=== PATIENT | male | born 1995 | race Hispanic/Latino ===

== ENCOUNTER 2016-11-29 18:09 | Emergency (ER) | payer MEDICAID ==
[2016-11-29 18:14] VITALS: BP 117/79; PULSE 73; RESP 20; TEMP 98.4; O2SAT 100
--- NOTE | 2016-11-29 18:38 | C.PDOC ---
History Of Present Illness The patient, a 21 y/o male, presents to the ED for evaluation of a painful area of swelling around his left ear which began around 2 days ago. Patient states he attempted to squeeze the area and is now concerned that the area is infected. Otherwise, he denies fever, chills, wound draining, earache, headache , dizziness, neck pain, denies any other active complaints. Ambulate to Ed for evaluation, not in any apparent distress. Time Seen by Provider: 11/29/16 18:16 Chief Complaint (Nursing): Abnormal Skin Integrity History Per: Patient History/Exam Limitations: no limitations Onset/Duration Of Symptoms: Days (2) Current Symptoms Are (Timing): Still Present Location Of Injury: Left: Head (ear) Quality Of Symptoms: Painful, Swollen. denies: Draining Additional History Per: Patient Past Medical History Reviewed: Historical Data, Nursing Documentation, Vital Signs Vital Signs: Last Vital Signs Temp 98.4 F 11/29/16 18:13 Pulse 73 11/29/16 18:13 Resp 20 11/29/16 18:13 BP 117/79 11/29/16 18:13 Pulse Ox 100 11/29/16 20:21 - Medical History PMH: Asthma Surgical History: No Surg Hx Family History: States: Unknown Family Hx - Social History Hx Tobacco Use: Yes Hx Alcohol Use: No Hx Substance Use: No - Immunization History Hx Tetanus Toxoid Vaccination: Yes Hx Influenza Vaccination: No Hx Pneumococcal Vaccination: No Review Of Systems Except As Marked, All Systems Reviewed And Found Negative. Constitutional: Negative for: Fever, Chills ENT: Positive for: Ear Pain (left ear ), Other (+swelling around left ear. no wound draining ) Physical Exam - Physical Exam Appears: Well, Non-toxic, No Acute Distress Skin: Warm, Dry, Other (facial acne condom. Small superficial abrasion just before tragus with mild erythema. no draining, no flactulance, no proximal streaking.) Head: Atraumatic, Normacephalic Eye(s): bilateral: Normal Inspection Ear(s): Bilateral: Normal Nose: Normal Oral Mucosa: Moist Tongue: Normal Appearing Lips: Normal Appearing Throat: Normal Lymphatic: No Adenopathy (cervical) Neurological/Psych: Oriented x3, Normal Speech ED Course And Treatment O2 Sat by Pulse Oximetry: 100 (on RA) Pulse Ox Interpretation: Normal Progress Note: Patient received Doryx PO. On re-eval, pt is afebrile, hemodynamicaly stable. NOn-toxic. Tolerate Po well in Ed. PulseOx 100% RA. Skin: exam c/w acne, superficial abrasion, no flactulance, no cellulitis. ENT: no acute findings. Pt advised. ref. to F/u with PMD. Derm In 2-3 days for re- eval. return if any new changes. Disposition Counseled Patient/Family Regarding: Diagnosis, Need For Followup, Rx Given - Disposition Referrals: David Lewis [Staff Provider] - Disposition: HOME/ ROUTINE Disposition Time: 18:34 Condition: GOOD Additional Instructions: Take medication as prescribed Apply antibacterial cream to scratch area daily Follow up with PMD and Dermatology in 1-2 days for re-evaluation. Return to Ed if any worsening or new changes. Prescriptions: Bacitracin OINT 1 applic TP DAILY #1 tube Doxycycline Hyclate 100 mg PO Q12 #14 tab Instructions: Acne (ED) - Clinical Impression Clinical Impression: Acne comedone - PA / PRACTICE MANAGEMENT CONSULTANT / Resident Statement MD/DO has reviewed & agrees with the documentation as recorded. - Scribe Statement The provider has reviewed the documentation as recorded by the Scribe (Yahaira Shields) All medical record entries made by the Scribe were at my direction and personally dictated by me. I have reviewed the chart and agree that the record accurately reflects my personal performance of the history, physical exam, medical decision making, and the department course for this patient. I have also personally directed, reviewed, and agree with the discharge instructions and disposition.
== END 2016-11-29 18:53 | disposition home or self-care (01) ==
LOC: C.ER 18:09
DX: S00.412A Abrasion of left ear, initial encounter (principal); X58.XXXA Exposure to other specified factors, initial encounter; L70.8 Other acne

== ENCOUNTER 2017-01-05 19:34 | Emergency (ER) | payer MEDICAID ==
[2017-01-05 20:07] VITALS: BP 113/70; PULSE 79; RESP 18; TEMP 97.9; O2SAT 99
--- NOTE | 2017-01-05 20:43 | C.PDOC ---
History Of Present Illness Patient is a 21 year old male who presents to the ER with a complaint of white spots on his gums that he woke up with. Patient reports having oral intercourse last night and it concerns that causes the spots. Patient also notes bumps on his face for the last 5 days. Patient admits to ETOH use today and admits to poor oral hygiene. Patient has not followed up with a dentist in "a long time". Patient denies fever, pain, dysuria, testicular pain or penile discharge. (-) pain with swallowing and difficulty breathing or swallowing History Per: Patient History/Exam Limitations: no limitations Onset/Duration Of Symptoms: Hrs (white on gingiva), Days (Bumps on face) Current Symptoms Are (Timing): Still Present Recent travel outside of the [place]: No Past Medical History Reviewed: Historical Data, Nursing Documentation, Vital Signs Vital Signs: Last Vital Signs Temp 97.9 F 01/05/17 20:04 Pulse 79 01/05/17 20:04 Resp 18 01/05/17 20:04 BP 113/70 01/05/17 20:04 Pulse Ox 99 01/05/17 21:53 - Medical History PMH: Asthma (STATES NO ATTTACK IN 5YRS) Surgical History: No Surg Hx Family History: States: Unknown Family Hx - Social History Hx Tobacco Use: Yes Hx Alcohol Use: No Hx Substance Use: No - Immunization History Hx Tetanus Toxoid Vaccination: Yes Hx Influenza Vaccination: No Hx Pneumococcal Vaccination: No Review Of Systems ENT: Positive for: Other (White spots on gingiva) Genitourinary: Negative for: Dysuria, Penile Discharge, Scrotal Pain Skin: Positive for: Other (Bumps on face) Physical Exam - Physical Exam Appears: Well, Non-toxic, No Acute Distress Skin: Warm, Dry, Other ((+) 2 pustules to left cheek, no surrounding erythema, blackheads and acne throughout face) Head: Atraumatic, Normacephalic Eye(s): bilateral: Normal Inspection, EOMI Nose: Normal Oral Mucosa: Moist Teeth: Caries, Other (poor dentition, plaque on teeth) Gingiva: No Erythema, No Ulceration, No Swelling, No Bleeding, Other ( (+) white debris on gingiva that is easily scraped off without erythma below , no swelling, or discharge. Not thrush appearance.) Throat: Normal, No Erythema, No Exudate Neck: Normal, Normal ROM, Supple Lymphatic: Normal Exam Chest: Symmetrical, No Tenderness Cardiovascular: Rhythm Regular Respiratory: Normal Breath Sounds, No Accessory Muscle Use, Other (Speaking in complete sentences) Neurological/Psych: Oriented x3, Normal Speech, Other (No focal deficits) ED Course And Treatment O2 Sat by Pulse Oximetry: 99 (Room air) Pulse Ox Interpretation: Normal Progress Note: Discussed with patient that gingiva shows poor dentition, no signs of infection. Pt admits to not brushing his teeth in 2 days. Offered STD evaluation /treatment; pt notes he is asymptomatic- no penile discharge, pain, dysuria. Pt was instructed for physical with further evaluation in 1-2 days. Also instructed to follow up with dentist or store team leader. Disposition - Disposition Referrals: Non [facility] Provider, [Primary Care Provider] - Disposition: HOME/ ROUTINE Disposition Time: 20:37 Condition: STABLE Additional Instructions: Use mouth wash twice a day after brushing. Follow up with dentist and store team leader. Prescriptions: Benzocaine 7.5% [Orajel] 7.5 gel MM TID #1 tube Clindamycin 1% [Cleocin] 1 appl TP DAILY #1 tube Instructions: Acne (ED) - Clinical Impression Clinical Impression: Acne, Dental plaque - Scribe Statement The provider has reviewed the documentation as recorded by the Scribhumberto Miranda All medical record entries made by the Scribe were at my direction and personally dictated by me. I have reviewed the chart and agree that the record accurately reflects my personal performance of the history, physical exam, medical decision making, and the department course for this patient. I have also personally directed, reviewed, and agree with the discharge instructions and disposition.
== END 2017-01-05 21:09 | disposition home or self-care (01) ==
LOC: SUPCPDRO 19:34 → C.ER 19:34
DX: K08.89 Other specified disorders of teeth and supporting structures (principal); L70.9 Acne, unspecified

== ENCOUNTER 2017-05-11 12:05 | Emergency (ER) | payer MEDICAID ==
[2017-05-11 12:24] VITALS: TEMP 98.5
--- NOTE | 2017-05-11 12:57 | C.PDOC ---
History Of Present Illness 21 yo male come in for evaluation of sore throat for past few days. Pt also request evaluation, " painful small mass in front of my left ear for past few months". Otherwise, pt denies fever, chills, headache, dizziness, drooling, dysphagia, earache or ear discharges, cough, neck pain, CP, SOB, cough, wheezing , abd. pain, N/V/D, back pain, UTI sx. Ambulate to Ed for evaluation, not in any apparent distress. Time Seen by Provider: 05/11/17 12:21 Chief Complaint (Nursing): ENT Problem History Per: Patient Onset/Duration Of Symptoms: Gradual Past Medical History Reviewed: Historical Data, Nursing Documentation, Vital Signs Vital Signs: Last Vital Signs Temp 98.5 F 05/11/17 12:18 Pulse 68 05/11/17 12:18 Resp 20 05/11/17 12:18 BP 106/68 05/11/17 12:18 Pulse Ox 98 05/11/17 12:18 - Medical History PMH: Asthma (STATES NO ATTTACK IN 5YRS) Surgical History: No Surg Hx Family History: States: No Known Family Hx - Social History Hx Tobacco Use: Yes Hx Alcohol Use: Yes Hx Substance Use: No - Immunization History Hx Tetanus Toxoid Vaccination: Yes Hx Influenza Vaccination: No Hx Pneumococcal Vaccination: No Review Of Systems Except As Marked, All Systems Reviewed And Found Negative. Constitutional: Negative for: Fever, Chills ENT: Positive for: Nose Congestion, Throat Pain. Negative for: Ear Discharge, Nose Discharge, Throat Swelling Cardiovascular: Negative for: Chest Pain Respiratory: Negative for: Cough, Shortness of Breath, Wheezing Gastrointestinal: Negative for: Nausea, Vomiting, Abdominal Pain, Diarrhea Musculoskeletal: Negative for: Neck Pain Skin: Positive for: Rash Neurological: Negative for: Altered Mental Status Physical Exam - Physical Exam Appears: Well, No Acute Distress Skin: Normal Color, Warm, Dry, Other (scattered facial pustulas to face and one in front of left ear/tragus. No cellulitis, no flactulance.) Head: Normacephalic Eye(s): bilateral: PERRL Ear(s): Bilateral: Normal Nose: No Flaring, No Discharge Oral Mucosa: Moist, No Drooling Tongue: Normal Appearing Lips: Normal Appearing Throat: Erythema (mod edema and erythema B/L), No Exudate, No Drooling, Other ( uvula midline, no edema.) Neck: Supple Cardiovascular: Rhythm Regular, No JVD Respiratory: No Decreased Breath Sounds, No Accessory Muscle Use, No Stridor, No Wheezing Gastrointestinal/Abdominal: Soft, No Tenderness Extremity: No Swelling Neurological/Psych: Oriented x3, Normal Speech ED Course And Treatment O2 Sat by Pulse Oximetry: 98 Progress Note: On re-eval, pt is afebrile, hemodynamicaly stable. Non-toxic. PUlseOx 98% RA. Skin: facial pustulas c/w acne. No cellulitis, no flactulance. neck: Supple, (-) meningeal sign. ENT: (+) exam c/w acute pharyngitis.uvul a midline, no edema. Lungs: CTA B/L, BS equal B/L. CVS: (+)S1S2, reg. Abd: benign. Neurologicaly intact. Pt advised. ref. to F/u with PMD, Derm in 1-2 days for re-eval. return if any new changes. Disposition Counseled Patient/Family Regarding: Diagnosis, Need For Followup, Rx Given - Disposition Referrals: Deepthi Lewis MD [Medical Doctor] - Disposition: HOME/ ROUTINE Disposition Time: 12:54 Condition: STABLE Additional Instructions: Encourage fluids Take medication as prescribed Warm salty water throat gurgles 2-3 times daily Follow up with PMD in 2-3 days for re-evaluation. return to ED if any worsening or new changes. Prescriptions: Doxycycline Hyclate [Doryx] 100 mg PO BID #14 cap Ibuprofen [Motrin Tab] 600 mg PO Q6 #20 tab Instructions: Pharyngitis (ED), Acne (ED) - Clinical Impression Clinical Impression: Pharyngitis, Acne
[2017-05-11 13:17] VITALS: BP 110/70; PULSE 70; RESP 16; O2SAT 98
== END 2017-05-11 13:25 | disposition home or self-care (01) ==
LOC: C.ER 12:05
DX: J02.9 Acute pharyngitis, unspecified (principal); L70.9 Acne, unspecified

== ENCOUNTER 2017-09-06 16:01 | Emergency (ER) | payer SELFPAY ==
[2017-09-06 16:19] VITALS: RESP 18; O2SAT 99
--- NOTE | 2017-09-06 17:22 | C.PDOC ---
History Of Present Illness 22 y/o male c/o whitish tender area on inner lower lip and sore throat since yester day. c/o painful swallowing. no fever Time Seen by Provider: 09/06/17 16:25 Chief Complaint (Nursing): Abnormal Skin Integrity History Per: Patient History/Exam Limitations: no limitations Onset/Duration Of Symptoms: Days (1) Current Symptoms Are (Timing): Still Present Location Of Injury: Right: Mouth (inner lower lip) Quality Of Symptoms: Painful Severity: Mild Past Medical History Reviewed: Historical Data, Nursing Documentation, Vital Signs Vital Signs: Last Vital Signs Temp 97.8 F 09/06/17 16:18 Pulse 83 09/06/17 16:18 Resp 18 09/06/17 16:18 BP 131/73 09/06/17 16:18 Pulse Ox 99 09/06/17 17:29 - Medical History PMH: Asthma (STATES NO ATTTACK IN 5YRS) Family History: States: Unknown Family Hx - Social History Hx Tobacco Use: Yes Hx Alcohol Use: No Hx Substance Use: No - Immunization History Hx Tetanus Toxoid Vaccination: Yes Hx Influenza Vaccination: No Hx Pneumococcal Vaccination: No Review Of Systems Constitutional: Negative for: Fever, Chills ENT: Positive for: Throat Pain Cardiovascular: Negative for: Chest Pain Respiratory: Negative for: Cough, Wheezing Skin: Positive for: Other (whitish area on lip). Negative for: Rash Neurological: Negative for: Weakness, Numbness Physical Exam - Physical Exam Appears: Non-toxic, No Acute Distress Skin: Warm, Dry, Other (whitish area to inner right lower lip, not swollen, not tender, no discharge. no vesicles noted. ) Head: Atraumatic, Normacephalic Eye(s): bilateral: Normal Inspection Nose: No Discharge Oral Mucosa: Moist Tongue: Normal Appearing Lips: Other (see skin) Teeth: Normal Dentition Gingiva: Normal Appearing, No Ulceration, No Tender Throat: Erythema (mild), No Exudate Neck: Supple Lymphatic: No Adenopathy ED Course And Treatment O2 Sat by Pulse Oximetry: 99 Medical Decision Making Medical Decision Making: pt with sore throat, white area on inner lip, will d/c with tylenol. Disposition Counseled Patient/Family Regarding: Diagnosis, Need For Followup, Rx Given - Disposition Referrals: [facility] [Outside] Disposition: HOME/ ROUTINE Disposition Time: 17:26 Condition: STABLE Additional Instructions: Gargle with warm salty water several times a day. Tylenol for pain. Follow up with dentist (for lip) and your doctor or in clinic in the next few days. Prescriptions: Acetaminophen [Tylenol 325mg tab] 650 mg PO Q6 #30 tab Acetaminophen [Tylenol 325mg tab] 975 mg PO Q6 #30 tab Instructions: Pharyngitis (ED) Forms: [facility] (Wallisian), General Discharge Instructions - Clinical Impression Clinical Impression: Skin irritation, Pharyngitis
[2017-09-06 17:44] VITALS: BP 111/73; PULSE 65; TEMP 97.7
== END 2017-09-06 17:51 | disposition home or self-care (01) ==
LOC: C.ER 16:01
DX: K13.0 Diseases of lips (principal); J02.9 Acute pharyngitis, unspecified